=== PATIENT | male | born 1945 | race Caucasian/White ===

== ENCOUNTER 2019-09-27 06:47 | Emergency (ER) | payer OTHER ==
[~2019-09-27] VITALS: Ht 177.8 cm; Wt 82.0 kg
--- NOTE | 2019-09-27 07:11 | NUR ---
PT BIB [facility], PT WAS ATTEMPTING TO RETURN TO [facility] AND FELL DOWN THE ESCALATOR. PT STATES HE LOST HIS BALANCE, SKIN TEARS TO BILAT ARMS, WRAPPED BY EMS. PT WITH LAC TO R FOREHEAD. PT +ETOH, ON BLOOD THINNERS. PT [id number] COOPERATIVE AT THIS TIME. PT TO NIBP, CONT PULSE OX. DENIES PAIN. PT TO CT, THEN EMT TO DRESS WOUNDS
--- NOTE | 2019-09-27 07:20 | NUR ---
PT TO IMAGING AT THIS TIME
[2019-09-27] MEDS ORDERED: NEOSPORIN OINT. PKT 1 PACKET ONE (07:33)
[2019-09-27 07:52] LABS: INTERNATIONAL NORMALIZED RATIO 0.99 (0.93-1.1); PROTHROMBIN TIME 10.4 Seconds (9.6-11.5)
[2019-09-27 08:20] VITALS: BP 143/74
--- NOTE | 2019-09-27 08:37 | NUR ---
EMT PROVIDED WOUND CARE. PT PLACED FOR RECHECK
== END 2019-09-27 09:02 | disposition home or self-care (01) ==
LOC: ED 08:45
DX: S00.93XA Contusion of unspecified part of head, initial encounter (principal); S50.12XA Contusion of left forearm, initial encounter; S50.11XA Contusion of right forearm, initial encounter; S00.31XA Abrasion of nose, initial encounter; S50.812A Abrasion of left forearm, initial encounter; S50.811A Abrasion of right forearm, initial encounter; S00.81XA Abrasion of other part of head, initial encounter; F10.120 Alcohol abuse with intoxication, uncomplicated; F17.200 Nicotine dependence, unspecified, uncomplicated; Z72.89 Other problems related to lifestyle; W01.0XXA Fall on same level from slipping, tripping and stumbling without subsequent striking against object, initial encounter; Y93.89 Activity, other specified; Y92.89 Other specified places as the place of occurrence of the external cause; Y99.8 Other external cause status; Y90.9 Presence of alcohol in blood, level not specified
CPT/HCPCS: 36415; 70450; 70486; 85610; 85730; 99284